=== PATIENT | male | born 1935 | race Caucasian/White ===

== ENCOUNTER 2021-03-03 20:23 | Emergency (ER) | payer MEDICARE ==
[~2021-03-03 20:23] MED LIST: BUMETANIDE2 MG PO; COREG 12.5MG12.5 MG PO; DOXERCALCIFER0.5 MCG PO; GLIPIZIDE ER10 MG PO; HUMALOG100 UNIT/1 SQ; JANUVIA100 MG PO; LEVEMIR FL100 UNIT/1 SQ; PROTONIX40 MG PO; SYNTHROID75 MCG PO; VITAMIN B-121000 MCG PO; VITAMIN D32000 UNI1 PO; ZOCOR20 MG PO
== END 2021-03-03 23:21 | disposition home or self-care (01) ==
LOC: ER1 20:23
DX: Z53.21 Procedure and treatment not carried out due to patient leaving prior to being seen by health care provider (principal)

== ENCOUNTER → 2021-05-02 | Outpatient (CLI) | payer MEDICARE | LOC: EXRD 15:02 | DX: M10.9 Gout, unspecified (principal) | CPT/HCPCS: 73610 ==

== ENCOUNTER 2021-10-20 09:28 | Emergency (ER) | payer MEDICARE, OTHER | END 2021-10-20 10:15 | disposition home or self-care (01) | LOC: ER1 09:28 | DX: M54.31 Sciatica, right side (principal); Z95.0 Presence of cardiac pacemaker; E11.9 Type 2 diabetes mellitus without complications; E78.5 Hyperlipidemia, unspecified; I10 Essential (primary) hypertension | CPT/HCPCS: 96372; 99283; J1100 ==

== ENCOUNTER → 2021-10-24 | Outpatient (CLI) | payer MEDICARE, OTHER | LOC: RAD 15:25 | DX: M54.31 Sciatica, right side (principal); M47.816 Spondylosis without myelopathy or radiculopathy, lumbar region | CPT/HCPCS: 72110 ==

== ENCOUNTER 2021-11-03 03:38 | Emergency (ER) | payer MEDICARE ==
[2021-11-03 04:31] LABS: HEMOGLOBIN 13.5 gm/dl (14.0-17.5); RED BLOOD COUNT 4.78 M/UL (4.20-5.50); WHITE BLOOD COUNT 8.1 K/UL (4.5-11.0)
[2021-11-03 04:54] LABS: BUN/CREATININE RATIO 17 (0-10)
== END 2021-11-03 07:45 | disposition home or self-care (01) ==
LOC: ER1 03:38
PROVIDERS: Physician Assistant
DX: S16.1XXA Strain of muscle, fascia and tendon at neck level, initial encounter (principal); S01.111A Laceration without foreign body of right eyelid and periocular area, initial encounter; E11.649 Type 2 diabetes mellitus with hypoglycemia without coma; I10 Essential (primary) hypertension; Z95.810 Presence of automatic (implantable) cardiac defibrillator; Z23 Encounter for immunization; W01.10XA Fall on same level from slipping, tripping and stumbling with subsequent striking against unspecified object, initial encounter; Y92.009 Unspecified place in unspecified non-institutional (private) residence as the place of occurrence of the external cause
CPT/HCPCS: 12011; 70450; 71045; 72125; 72131; 80053; 82550; 82553; 82962; 83874; 84484; 85025; 90471; 90715; 99284

== ENCOUNTER → 2021-11-11 | Outpatient (CLI) | payer MEDICARE | LOC: CT 12:49 | DX: N28.89 Other specified disorders of kidney and ureter (principal) | CPT/HCPCS: Q9965 ==

== ENCOUNTER → 2022-05-12 | Outpatient (CLI) | payer MEDICARE | LOC: CT 09:31 | DX: I10 Essential (primary) hypertension (principal); E11.9 Type 2 diabetes mellitus without complications; K62.5 Hemorrhage of anus and rectum; K57.30 Diverticulosis of large intestine without perforation or abscess without bleeding; N28.89 Other specified disorders of kidney and ureter; R97.20 Elevated prostate specific antigen [PSA]; M51.36 Other intervertebral disc degeneration, lumbar region | CPT/HCPCS: 36415; 82565; 84520; Q9965 ==